=== PATIENT | male | born 1965 | race Caucasian/White ===

== ENCOUNTER 2019-08-23 22:22 | Emergency (ER) | payer OTHER ==
[~2019-08-23] VITALS: Ht 182.9 cm; Wt 113.6 kg
[2019-08-23 22:25] VITALS: TEMP 98.9
[2019-08-23] MEDS ORDERED: PROTONIX20 MG PO (22:42)
[2019-08-24] MEDS ORDERED: CEPHALEXIN500 M1 PO (01:34)
[2019-08-24 02:16] VITALS: BP 141/101; PULSE 98
== END 2019-08-24 02:16 | disposition home or self-care (01) ==
LOC: COL.ER 22:22
DX: S61.021A Laceration with foreign body of right thumb without damage to nail, initial encounter (principal); K21.9 Gastro-esophageal reflux disease without esophagitis; X58.XXXA Exposure to other specified factors, initial encounter; Y92.009 Unspecified place in unspecified non-institutional (private) residence as the place of occurrence of the external cause
CPT/HCPCS: J0690; J7040